=== PATIENT | female | born 1955 | race Caucasian/White ===

== ENCOUNTER 2018-06-04 22:12 | Emergency (ER) | payer SELFPAY ==
[~2018-06-04] VITALS: Ht 157.5 cm; Wt 68.2 kg
[~2018-06-04 22:12] MED LIST: ASPIRIN81 MG OR; ATIVAN1 M1 PO; KETOROLAC10 MG PO; LOTREL 2.5/101 CAP OR; MEDDOSEPAK OR; MOTRIN IB200 MG OR; PROAIR HFA IN; TORADOL PO; TYLENOL COL5 OR; VISTARIL 50MG C50 M1 PO
[2018-06-04 22:59] LABS: HEMOGLOBIN 16.3 g/dl (12.0-16.0); IMMATURE GRANULOCYTES 0.4 % (0.0-5.0); MEAN CELL VOLUME 90.4 fL CALC (80.0-100.0); MEAN CORPUSCULAR HGB 30.7 pG CALC (26.0-32.0); NEUT# 8.73 thou/uL (2.00-7.15); RED BLOOD COUNT 5.31 mill/uL (4.20-5.60); RED CELL DISTRI WIDTH 12.2 % (11.5-15.5)
[2018-06-04 23:11] LABS: ALBUMIN 4.7 g/dL (3.2-5.0); ALKALINE PHOSPHATASE 124 u/l (38-126); ANION GAP 17 (6-22 (CALC)); BILIRUBIN, TOTAL 0.4 mg/dL (0.0-1.4); BUN 11 mg/dL (8-23); BUN/CREATININE RATIO 12 (12-20 (CALC)); CARBON DIOXIDE 25 mmol/l (22-30); CHLORIDE 105 mmol/l (95-108); CREATININE 0.9 mg/dL (0.5-1.0); GFR > 60 ML/MIN (>=60 (CALC)); GFR FOR AFR.AMER. > 60 ML/MIN (>=60 (CALC)); POTASSIUM 3.9 mmol/l (3.5-5.1); SGOT/AST 19 u/l (9-36); SGPT/ALT 23 u/l (11-66); SODIUM 143 mmol/l (137-146); TOTAL PROTEIN 7.7 g/dL (6.3-8.2)
[2018-06-04 23:18] LABS: URINE BILIRUBIN - DIPSTICK NEGATIVE (NEGATIVE); URINE BLOOD DIPSTICK TRACE-LYSED (NEGATIVE); URINE COLOR YELLOW; URINE GLUCOSE - DIPSTICK NEGATIVE (NEGATIVE); URINE KETONE TRACE mg/dL (NEGATIVE); URINE LEUK ESTERASE NEGATIVE (NEGATIVE); URINE NITRITE - DIPSTICK NEGATIVE (Negative); URINE PROTEIN - DIPSTICK TRACE mg/dL (NEG-TRACE); URINE SPECIFIC GRAVITY 1.015; URINE UROBILINOGEN - DIPSTICK 0.2 E.U./dL (0.2)
[2018-06-04 23:19] LABS: URINE CLARITY SL CLOUDY
[2018-06-04] MEDS ORDERED: PHENERGAN25 MG RE (23:35)
[2018-06-04] MEDS ORDERED: TAMSULOSIN0.4 MG PO (23:35)
[2018-06-04] MEDS ORDERED: TRAMADOL HCL50 MG PO (23:35)
[2018-06-04 23:59] VITALS: BP 158/78
== END 2018-06-04 23:59 | disposition home or self-care (01) | DRG 694 ==
LOC: ED 22:12
PROVIDERS: Family Medicine
DX: N20.1 Calculus of ureter (principal); I10 Essential (primary) hypertension; F17.210 Nicotine dependence, cigarettes, uncomplicated; Z87.442 Personal history of urinary calculi

== ENCOUNTER 2020-03-11 08:00 | Emergency (ER) | payer MEDICARE ==
[~2020-03-11 08:00] MED LIST changes: +PHENERGAN25 MG RE; +TAMSULOSIN0.4 MG PO; +TRAMADOL HCL50 MG PO
[2020-03-11 08:08] VITALS: BP 136/74
[2020-03-11] MEDS ORDERED: VALTREX1 GM PO (08:43)
[2020-03-11] MEDS ORDERED: HYDROCO/APAP1 TA9 PO (08:43)
== END 2020-03-11 09:00 | disposition home or self-care (01) ==
LOC: ED 08:00
DX: B02.9 Zoster without complications (principal); I10 Essential (primary) hypertension; F17.210 Nicotine dependence, cigarettes, uncomplicated

== ENCOUNTER 2021-01-26 20:56 | Emergency (ER) | payer MEDICARE ==
[~2021-01-26 20:56] MED LIST changes: +HYDROCO/APAP1 TA9 PO; +VALTREX1 GM PO
[2021-01-26] MEDS ORDERED: VALTREX1 GM PO (21:52)
[2021-01-26 22:27] VITALS: BP 188/82
== END 2021-01-26 22:27 | disposition home or self-care (01) ==
LOC: ED 20:56
DX: B02.9 Zoster without complications (principal); I10 Essential (primary) hypertension; F17.210 Nicotine dependence, cigarettes, uncomplicated